=== PATIENT | female | born 1940 | race Caucasian/White ===

== ENCOUNTER 2016-08-06 13:47 | Emergency (ER) | payer OTHER ==
[2016-08-06] MEDS ORDERED: DILAUDID IM ONE ×2 (14:23→15:58)
[2016-08-06] MEDS ORDERED: PHENERGAN IM ONE (14:23)
--- NOTE | 2016-08-06 14:27 | PROVIDER DOCUMENTATION ---
HPI-Headache - General Chief Complaint: Headache Stated Complaint: HEADACHE Time Seen by Provider: 08/06/16 14:17 Source: patient Allergies/Adverse Reactions: Patient Allergies Allergy/AdvReac Type Severity Reaction Status Date / Time egg Allergy Intermediate SWELLING Verified 08/06/16 14:17 Penicillins Allergy Intermediate SWELLING Verified 08/06/16 14:17 Sulfa (Sulfonamide Allergy Intermediate SWELLING Verified 08/06/16 14:17 Antibiotics) [Sulfa(Sulfonamide Antibiotics)] Home Medications: Gabapentin [Neurontin] 300 mg PO BID 06/03/12 - History of Present Illness-Headache Nature of Presenting Problem: patient is a 75 y/o F that presents to the ER with frontal headache that began this am. patient has history of migraines, usually take Tramadol that usually relieves her headache, but not this am. Denies vomiting, fever/chills, or neck pain. patient has some nausea Headache Location: reports: frontal Quality of Pain: reports: throbbing Severity: reports: mild Onset/Duration: reports: gradual, this morning Timing: reports: still present, constant Headache Context: reports: nothing Headache History: reports: chronic headaches, history of migraines Any recent trauma/injury?: reports: none Headache severity at the maximum: moderate Headache Exacerbated by:: reports: nothing Modifying Factors: improves with: nothing Associated Symptoms: reports: headache, nausea. denies: decreased ability to walk or stand, dizziness, confusion, neck/back pain, fever/chills, vomiting Similar Symptoms Previously?: Yes Recently seen or treated by another doctor?: No Review of Systems - Adult - REVIEW OF SYSTEMS - ADULT Constitutional: denies: chills, fever Eyes: reports: no symptoms reported Ears, Nose, Mouth & Throat: denies: ear discharge, ear pain, sinus problem, throat pain, throat swelling Cardiovascular: denies: chest pain, palpitations, syncope Respiratory: denies: cough, shortness of breath, wheezing Gastrointestinal: reports: nausea. denies: abdominal pain, diarrhea, vomiting Genitourinary: reports: no symptoms reported Musculoskeletal: denies: back pain, joint pain, neck pain Integumentary: reports: no symptoms reported Neurological: reports: headache/migraines. denies: dizziness/vertigo, seizure, syncope Psychiatric: reports: no symptoms reported Endocrine: reports: no symptoms reported Hematologic/Lymphatic: reports: no symptoms reported Allergic/Immunologic: reports: no symptoms reported All Other Systems: Reviewed and Negative Past History - Adult - PAST MEDICAL HISTORY-ADULT Review of Records: reports: Old Records Reviewed, Nursing Assessment Review, Medications Reviewed Cardiovascular: reports: HTN, hyperlipidemia Neurological: reports: headaches/migraines, other (sub arachnoid cyst) Additional History: Patient is a very poor historian and stated she wasn't sure about her PMH - PRIOR SURGERIES/PROCEDURES Surgical/Procedure History: reports: reviewed, not pertinent - IMMUNIZATION STATUS Childhood Immunizations: UTD, See Nurse Assessment Flu Vaccine: See Nurse Assessment - FAMILY HISTORY Family History: reviewed, not pertinent - SOCIAL HISTORY Smoking: non-smoker Living Situation: family Physical Exam- Neurological - Physical Exam-Neuro Initial Vital Signs Reviewed: Yes General Appearance: alert, no apparent distress Eye Exam: bilateral eye: normal inspection, PERRL HENMT: normocephalic/atraumatic, moist mucous membranes, normal ENT inspection Head Injury: no evidence of injury. 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 Exam: normal hearing, normal speech, PERRL Motor/Sensory: no motor deficit, no sensory deficit Neurologic: grossly normal, no motor/sensory deficits Integumentary: normal color, warm/dry Psych/Mental Status: normal mood/affect, normal thought content, normal thought process, oriented x 3 - Glascow Coma Scale Best Eye Response: (4) open spontaneously Best Verbal Response: (5) oriented Best Motor Response: (6) obeys commands Total Glascow Score: 15 Progress - PLAN OF CARE/RESULTS Progress/Plan/Lab Results: Vital Signs Temp Pulse Resp BP Pulse Ox 08/06/16 14:01 97.8 F 78 18 154/88 100 egg Allergy (Intermediate, Verified 08/06/16 14:17) SWELLING Penicillins Allergy (Intermediate, Verified 08/06/16 14:17) SWELLING Sulfa (Sulfonamide Antibiotics) [Sulfa(Sulfonamide Antibiotics)] Allergy ( Intermediate, Verified 08/06/16 14:17) SWELLING Gabapentin [Neurontin] 300 mg PO BID 06/03/12 Orders Category Date Time Status Hydromorphone [Dilaudid] Med 08/06/16 14:23 Discontinued 1 mg IM NOW ONE Promethazine [Phenergan] Med 08/06/16 14:23 Discontinued 25 mg IM NOW ONE pt will be d/c home f/u with pcp, pt understood instructions, pt was clinically and neurologically stable Departure - Departure Time of Disposition Order: 14:24 DIAGNOSIS: Headache Qualifiers: Headache type: tension-type Disposition: HOME 01 Certified Medical Emergency: Emergent Condition: Stable Additional Instructions: ED Follow Up Instructions: You have been treated by a care provider in the Emergency Department. These instructions are being provided to you so you can have an understanding of how to care for yourself upon discharge. Upon discharge from the Emergency Department, you are responsible for making arrangements for follow-up care by a physician of your choice. Take all prescribed medications as directed. Return to the Emergency Department immediately for any new or worsening symptoms. You may call the Physician Referral phone number at [phone] to obtain a list of Physicians who are taking new patients. Instructions: Tension Headache Attestation - Scribe Verification/Attestation Scribe:: Lamin Moody Acting as Scribe for:: Rios Najera Scribe documention review:: This chart was documented by a scribe and accurately reflects the service the provider performed and the decisions made by the provider. Physician Attestation - Physician Attestation I, the provider, attest to the following statement:: Rios Najera Physician documentation Attestation:: This documentation recorded by the scribe accurately reflects the service I personally performed and the decisions made by me.
[2016-08-06] MEDS ORDERED: TORADOL IM ONE (15:58)
[2016-08-06 16:12] VITALS: BP 144/62
== END 2016-08-06 16:11 | disposition home or self-care (01) ==
LOC: ED 13:47
DX: G44.209 Tension-type headache, unspecified, not intractable (principal); R11.0 Nausea; G89.29 Other chronic pain; I10 Essential (primary) hypertension; E78.5 Hyperlipidemia, unspecified; Z79.899 Other long term (current) drug therapy
CPT/HCPCS: 96372; J1170; J2550

== ENCOUNTER 2016-09-27 14:26 | Emergency (ER) | payer OTHER ==
[2016-09-27 14:31] VITALS: BP 148/87
[2016-09-27] MEDS ORDERED: REGLAN IM ONE (15:13)
[2016-09-27] MEDS ORDERED: BENADRYL IM ONE (15:13)
--- NOTE | 2016-09-27 15:15 | PROVIDER DOCUMENTATION ---
HPI-Headache - General Chief Complaint: Headache Stated Complaint: HEADACHE Time Seen by Provider: 09/27/16 14:53 Source: patient Allergies/Adverse Reactions: Patient Allergies Allergy/AdvReac Type Severity Reaction Status Date / Time egg Allergy Intermediate SWELLING Verified 09/27/16 15:30 Penicillins Allergy Intermediate SWELLING Verified 09/27/16 15:30 Sulfa (Sulfonamide Allergy Intermediate SWELLING Verified 09/27/16 15:30 Antibiotics) [Sulfa(Sulfonamide Antibiotics)] Home Medications: Home Medication List Medication Instructions Recorded Confirmed Last Taken Type Gabapentin [Neurontin] 300 mg PO BID 06/03/12 09/27/16 09/27/16 10:00 History Butalb/APAP/Caffeine [Fioricet] 1 each PO Q4H PRN PRN #14 capsule 09/27/16 Unknown Rx - History of Present Illness-Headache Nature of Presenting Problem: Pt is a 75 y/o F c chief complaint of migraine headache x 1 day. Pt has a h/o migraine headaches and states that this headache is very similar to her previous headaches. She denies any focal nurological deficits, slurred speech, changes in vision, or other stroke like symptoms. On arrival, pt is in minimal distress and ambulatory. Review of Systems - Adult - REVIEW OF SYSTEMS - ADULT Constitutional: reports: no symptoms reported. denies: chills, fatique Eyes: reports: no symptoms reported. denies: blurred vision, double vision Ears, Nose, Mouth & Throat: reports: no symptoms reported. denies: ear pain, nose pain Cardiovascular: reports: no symptoms reported. denies: chest pain, irregular heart rate Respiratory: reports: no symptoms reported. denies: cough, shortness of breath Gastrointestinal: reports: no symptoms reported. denies: abdominal pain, nausea Genitourinary: reports: no symptoms reported. denies: dysuria, hematuria Musculoskeletal: reports: no symptoms reported. denies: joint pain, joint swelling Integumentary: reports: no symptoms reported. denies: hives, itching Neurological: reports: headache/migraines. denies: ataxia, dizziness/vertigo, loss of balance, numbness, paresthesia, seizure, slurred speech, syncope, tremors Psychiatric: reports: no symptoms reported. denies: anxiety, emotional problems Endocrine: reports: no symptoms reported. denies: cold intolerance, heat intolerance Hematologic/Lymphatic: reports: no symptoms reported. denies: blood clots, low blood count Allergic/Immunologic: reports: no symptoms reported. denies: allergic reactions , food allergy All Other Systems: Reviewed and Negative Past History - Adult - PAST MEDICAL HISTORY-ADULT Review of Records: reports: Old Records Reviewed, Nursing Assessment Review, Medications Reviewed, Social history reviewed & non-contributory. Major Childhood Illnesses: reports: denies history Cardiovascular: reports: HTN, hyperlipidemia Respiratory: reports: denies history Gastrointestinal: reports: denies history Obstetrical/Gynecological: reports: denies history Genitourinary: reports: denies history Musculoskeletal: reports: denies history Neurological: reports: headaches/migraines, other (sub arachnoid cyst) Endocrine/Immune: reports: denies history Other Conditions: reports: denies history Additional History: Patient is a very poor historian and stated she wasn't sure about her PMH - PRIOR SURGERIES/PROCEDURES Surgical/Procedure History: reports: reviewed, not pertinent - IMMUNIZATION STATUS Childhood Immunizations: UTD, See Nurse Assessment Flu Vaccine: See Nurse Assessment - FAMILY HISTORY Family History: reviewed, not pertinent - SOCIAL HISTORY Smoking: denies Substance Use: none/never Alcohol Use Frequency: never Living Situation: family Physical Exam- Neurological - Physical Exam-Neuro Initial Vital Signs Reviewed: Yes General Appearance: appears well, alert, no apparent distress Eye Exam: bilateral eye: normal inspection, PERRL, EOMI HENMT: normocephalic/atraumatic, moist mucous membranes, normal ENT inspection Head Injury: no evidence of injury Neck: non-tender, full range of motion, supple Respiratory: chest non-tender, lungs clear, normal breath sounds Cardiovascular: normal peripheral pulses, regular rate, rhythm, no edema Abdominal Exam: normal bowel sounds, non tender, soft Lymphatic: no adenopathy Extremity: normal range of motion, non-tender, normal gait rf manager Exam: normal hearing, normal speech Coordination/Gait: normal finger to nose, normal gait, negative Romberg's sign Motor/Sensory: no motor deficit, no sensory deficit, no pronator drift Neurologic: rf manager II-XII nml as tested, no motor/sensory deficits Integumentary: normal color, normal turgor, warm/dry Psych/Mental Status: normal mood/affect, normal thought content, normal thought process, oriented x 3 - Glascow Coma Scale Best Eye Response: (4) open spontaneously Best Verbal Response: (5) oriented Best Motor Response: (6) obeys commands Progress - PLAN OF CARE/RESULTS Progress/Plan/Lab Results: Orders Category Date Time Status Diphenhydramine [Benadryl] Med 09/27/16 15:13 Discontinued 25 mg IM NOW ONE Metoclopramide [Reglan] Med 09/27/16 15:13 Discontinued 10 mg IM NOW ONE Vital Signs - 24 hr 09/27/16 14:29 Temperature 98.2 F Pulse Rate 90 Respiratory 16 Rate Blood Pressure 148/87 O2 Sat by Pulse 98 Oximetry Departure - Departure Time of Disposition Order: 15:14 DIAGNOSIS: Head ache Qualifiers: Headache type: unspecified Headache chronicity pattern: chronic headache Intractability: not intractable Qualified Code(s): R51 - Headache Disposition: HOME 01 Certified Medical Emergency: Emergent Condition: Stable Additional Instructions: ED Follow Up Instructions: You have been treated by a care provider in the Emergency Department. These instructions are being provided to you so you can have an understanding of how to care for yourself upon discharge. Upon discharge from the Emergency Department, you are responsible for making arrangements for follow-up care by a physician of your choice. Take all prescribed medications as directed. Return to the Emergency Department immediately for any new or worsening symptoms. You may call the Physician Referral phone number at [phone] to obtain a list of Physicians who are taking new patients. Prescriptions: Butalb/APAP/Caffeine [Fioricet] 1 each PO Q4H PRN PRN #14 capsule PRN Reason: Migraine Headache Referrals: Carl Chapa III, MD [STAFF PHYSICIAN] - Instructions: Migraine Headache, [id number] Attestation - Physician/ JACKIE Attestation Patient care was provided by Advanced Practice Provider:: Yes Advanced Practice Provider:: Oscar Faulkner Advanced Practice Provider documentation review:: The Mid-level provider documentation, treatment plan and medical decision making was reviewed by the physician who agrees with all treatment and medical decision making by the MLP.
== END 2016-09-27 15:37 | disposition home or self-care (01) ==
LOC: ED 14:26
DX: R51 Headache (principal); I10 Essential (primary) hypertension; E78.5 Hyperlipidemia, unspecified; Z79.899 Other long term (current) drug therapy